=== PATIENT | male | born 2000 | race African-American/Black ===

== ENCOUNTER 2022-01-18 22:43 | Emergency (ER) | payer OTHER ==
[2022-01-19] MEDS ORDERED: EUCERIN ORIGIN500 ML TP (01:14)
== END 2022-01-19 01:30 | disposition home or self-care (01) ==
LOC: ER1 22:43
DX: S21.211A Laceration without foreign body of right back wall of thorax without penetration into thoracic cavity, initial encounter (principal); L30.9 Dermatitis, unspecified; I10 Essential (primary) hypertension; W26.8XXA Contact with other sharp object(s), not elsewhere classified, initial encounter; Y92.009 Unspecified place in unspecified non-institutional (private) residence as the place of occurrence of the external cause
CPT/HCPCS: 12004; 99282